=== PATIENT | male | born 1990 | race Caucasian/White ===

== ENCOUNTER 2019-12-18 01:23 | Observation (INO) ==
[2019-12-18 01:40] LABS: Bilirubin,Urine Negative (Negative); Blood,Urine Trace (Negative); Clarity,Urine Clear (Clear); Color,Urine Yellow (Yellow); Glucose,Urine (UA) Normal (Normal); Ketones,Urine Negative (Negative); Leukocyte Esterase,Urine Negative (Negative); Nitrite,Urine Negative (Negative); Protein,Urine 100 mg/dL (Neg-Trace); Specific Gravity,Urine 1.006 (1.010-1.025); Urobilinogen,Urine Normal (Normal)
[2019-12-18 01:42] LABS: Bacteria,Urine None Seen per hpf (None-Few); Hyaline Casts,Urine None Seen per lpf (None-Few); Squamous Epithelial Cell,Urine Moderate per lpf (None-Few); WBC,Urine 0-3 per hpf (0-3)
[2019-12-18 02:03] LABS: Basophils % 0.2 %; Eosinophils # 0.2 K/mcL (0.0-0.6); Eosinophils % 2.5 %; Hematocrit 42.3 % (37.5-50.1); Hemoglobin 14.3 g/dL (12.9-16.9); Immature Granulocytes % 0.4 % (0-4); Lymphocytes # 2.1 K/mcL (0.6-4.6); Lymphocytes % 22.1 %; Mean Corpuscular HGB Conc 33.8 g/dL (31.6-35.5); Mean Corpuscular Volume 88.9 fL (83.0-100.0); Mean Platelet Volume 9.4 fL (9.4-12.4); Monocytes # 0.8 K/mcL (0.0-1.3); Monocytes % 8.2 %; Neutrophils # 6.4 K/mcL (1.6-8.9); Platelet Count 244 K/mcL (140-400); Red Blood Count 4.76 M/mcL (4.19-5.50); Red Cell Distribution Width 11.9 % (11.5-14.5); Segmented Neutrophils % 66.6 %; White Blood Count 9.7 K/mcL (4.3-11.1)
[2019-12-18 02:16] LABS: Calcium 9.1 mg/dL (8.6-10.3); Potassium 3.6 mEq/L (3.5-5.1)
[2019-12-18 02:17] LABS: Albumin 4.3 g/dL (3.5-5.7); Albumin/Globulin Ratio 1.6 (1.1-2.2); Bilirubin,Direct 0.1 mg/dL (0.0-0.2); Bilirubin,Indirect 0.4 mg/dL (0.0-1.0); Bilirubin,Total 0.5 mg/dL (0.3-1.0); Globulin 2.7 g/dL (2.4-3.5)
[2019-12-18] MEDS ORDERED: Ketorolac 15 MG/ML VIAL IVP ONE (03:03)
[2019-12-18] MEDS ORDERED: Naloxone 0.4 MG/ML INJ IVP PRN (04:48)
[2019-12-18] MEDS ORDERED: 0.9 % Sodium Chloride 1,000 ML IVC SCH (05:00)
[2019-12-18 09:20] LABS: Microalbumin,Urine 419 mg/L
[2019-12-18 09:25] LABS: Creatinine,Urine 42 mg/dL; Microalbum/Creatinine Ratio,Ur 998 mcg/mg (Less than 30)
[2019-12-18] MEDS: Ondansetron 4 MG/2 ML VIAL IVP PRN ×2 (13:32→19:32)
[2019-12-18] MEDS: 0.9 % Sodium Chloride 1,000 ML IVC SCH (15:49)
[2019-12-18 16:31] LABS: Complement C3 154 mg/dL (87-200)
[2019-12-18 17:04] LABS: Hepatitis B Surface Antigen Nonreactive (Nonreactive)
[2019-12-18 17:33] LABS: Hepatitis C Virus Antibody Nonreactive (Nonreactive)
[2019-12-19] MEDS: 0.9 % Sodium Chloride 1,000 ML IVC SCH (02:01)
[2019-12-19 09:09] LABS: Calcium 8.8 mg/dL (8.6-10.3); Potassium 4.5 mEq/L (3.5-5.1)
[2019-12-19 12:09] VITALS: BP 126/80
[2019-12-19] MEDS: Ondansetron 4 MG/2 ML VIAL IVP PRN (17:45)
[2019-12-21 09:35] LABS: ANA IgG by ELISA NONE DETECTED (None Detected)
[2019-12-21 09:38] LABS: Serine Protease-3 Antibody 0 AU/mL (0-19)
[2019-12-22 18:37] LABS: APTT (LE Anticoag) 42 sec (32-48); Diluted Russell Viper Venom 33 sec (33-44); PT (LE-Anticoag) 12.5 sec (12.0-15.5)
[2019-12-23 04:03] LABS: Alpha 2 Globulin (PEP) 0.92 g/dL (0.48-1.05); Beta Globulin (PEP) 0.84 g/dL (0.48-1.10)
[2019-12-23 08:38] LABS: Glomerular Basement Memb IgG NEGATIVE (Negative)
[2019-12-23 08:39] LABS: GBM IgG Multiplex Bead Assay 0 AU/mL (0-19)
[2019-12-23 08:48] LABS: IFE Reflexed NOT DONE
== END 2019-12-19 18:38 | disposition other institution (70) ==
LOC: 2ANU 01:23 → EMEROOARM 01:23 → SUATTDRO 03:52 → 2ANU 04:20
PROVIDERS: ADMIT Internal Medicine; ATTEND Internal Medicine